=== PATIENT | female | born 1940 | race Two or more races ===

== ENCOUNTER 2021-06-13 18:57 | Emergency (ER) | payer MEDICARE, MEDICAID ==
[~2021-06-13] VITALS: Ht 152.4 cm; Wt 54.5 kg
--- NOTE | 2021-06-13 19:13 | PHYS DOC ---
General Adult HPI: HPI: 40-year-old female past medical history of dementia, hypertension, diabetes, anxiety/underlying psych on depakote and history of frequent falls (on no AV), presents to the ED brought in by EMS after patient unwitnessed fall from standing, bystanders report no loss of consciousness. Patient with history of frequent falls with prior old bruising over her chin. Patient is Guamanian- speaking, not responding to commands in Guamanian, does not state her name. When asks he she's in pain, points to her full diaper. Keeps talking about "bogdan." Hx and ROS limited due to dementia. Review of Systems: Review of Systems: ROS: Unobtainable due to dementia and inappropriate responses Heart Score: C/O Chest Pain: N/A Risk Factors: Risk Factors: DM, Current or recent (<one month) smoker, HTN, HLP, family history of CAD, obesity. Risk Scores: Score 0 - 3: 2.5% MACE over next 6 weeks - Discharge Home Score 4 - 6: 20.3% MACE over next 6 weeks - Admit for Clinical Observation Score 7 - 10: 72.7% MACE over next 6 weeks - Early Invasive Strategies Physical Exam: PE: Constitutional: Well developed, well nourished, no acute distress, non-toxic appearance. HENT: two areas of ecchymosis under each side of her chin (both each 3x3cm), dry mucous membranes Eyes: EOMI, conjunctiva normal, no discharge. Neck: Normal range of motion, supple, no middle steps offs Cardiovascular: S1/2 present, regular rhythm Lungs & Thorax: Speaking in full sentences, bilateral equal chest rise, no tachypnea or increased work of breathing Abdomen: soft, no tenderness, Skin: Warm, dry, no erythema, no rash. [] Back: No midline step-offs or reproducible tenderness, no CVA tenderness. [] Extremities: Moving all 4 extremities, no lower extremity edema Neurologic: Alert, normal motor function, no focal deficits noted. [] Psychologic: Affect normal, judgement normal, mood normal. [] EKG: EKG: Session 65 bpm, no axis deviation, normal intervals, no T wave inversions, ST elevations or ST depressions Radiology/Procedures: Radiology/Procedures: IMAGING REPORT Signed PATIENT: JSUTIN KELLY ACCOUNT: [id number] : 1940 LOCATION: ER AGE: 80 SEX: F EXAM STATUS: REG ER ORD. PHYSICIAN: ANYA MARTINEZ DO REASON: fall from standing, PT UNCOOPERATIVE PROCEDURE: CT HEAD AND CERVICAL SPINE WO EXAMINATION: CT MAXILLOFACIAL WITHOUT CONTRAST, CT HEAD AND C-SPINE WO CLINICAL HISTORY: Fall from standing TECHNIQUE: Serial axial images without IV contrast were obtained from the vertex to the foramen magnum. Spiral high resolution axial unenhanced images were obtained through the facial bones with sagittal and coronal planar reconstructions. CT of the cervical spine without IV contrast. Spiral, high resolution axial images were obtained from the skull base to the cervicothoracic junction with sagittal and coronal planar reconstructions. CT Dose Reduction Employed: One or more of the following individualized dose reduction techniques were utilized for this examination: 1. Automated exposure control 2. Adjustment of the mA and/or kV according to patient size 3. Use of iterative reconstruction technique. COMPARISON: None FINDINGS: BRAIN: Acute Change: No evidence of an acute contusion or other acute parenchymal process. Hemorrhage: No evidence of acute intracranial hemorrhage. Mass Lesion/Mass Effect: No evidence of intracranial mass or extraaxial fluid collection. No significant mass effect. Chronic Change: Patchy hypoattenuation in the supratentorial white matter, nonspecific but likely represents mild to moderate microvascular ischemia. Atherosclerotic calcification of the bilateral carotid siphons. Parenchyma: Moderate generalized volume loss. Ventricles: Ventricular enlargement concordant with degree of parenchymal volume loss. Skull Base: No evidence of acute calvarial fracture. MAXILLOFACIAL: Soft Tissues: No significant superficial soft tissue swelling. Facial Bones: No definitive evidence of acute facial bone fracture. Depressed nasal bone fracture, likely remote given lack of associated soft tissue swelling and suspected corticated fracture margins. Orbits: No evidence of acute orbital fracture. Globes are intact with postoperative changes bilaterally. Soft tissue planes of the orbits maintained. Paranasal Sinuses: No significant sinus disease. Other: Dental caries bilateral maxillary molars. Excess cerumen in bilateral external auditory canals, greater on the left. C-SPINE: Alignment: Straightening to slight reversal of the normal cervical lordosis, possibly positional. Osseous Structures: No evidence of acute fracture or spondylolisthesis. Incomplete osseous fusion of C2 and C3. Degenerative Changes: Multilevel degenerative disc disease, greatest at C6-7. Predominantly mild multilevel neural foraminal narrowing, greatest at C3-4 on the left. No evidence of high-grade osseous spinal stenosis. Cervical Soft Tissues: No prevertebral soft tissue swelling. Vascular calcifications. IMPRESSION: BRAIN: No evidence of acute intracranial abnormality. Chronic white matter microvascular ischemic changes. MAXILLOFACIAL: No evidence of acute facial bone fracture. Probable remote depressed nasal bone fracture as described. C-SPINE: No evidence of acute osseous abnormality involving the cervical spine. Nonacute and multilevel degenerative findings as described. Electronically signed by: Leander Burris DO (06/13/2021 8:42 PM) [facility] DICTATED and SIGNED BY: LEANDER BURRIS DO DATE: 06/13/[id number] 0 IMAGING REPORT Signed PATIENT: JUSTIN KELLY ACCOUNT: [id number] : 1940 LOCATION: ER AGE: 80 SEX: F EXAM STATUS: PRE ER ORD. PHYSICIAN: ANYA MARTINEZ DO REASON: fall from standing PROCEDURE: CHEST AP ONLY Exam: Chest one view INDICATION: Fall from standing TECHNIQUE: Frontal view of the chest Comparisons: None FINDINGS: The cardiomediastinal silhouette and pulmonary vessels are within normal limits. The lung and pleural spaces are clear. IMPRESSION: No acute cardiopulmonary process. Electronically signed by: Ronnie Gastelum MD (06/13/2021 8:02 PM) [facility] DICTATED and SIGNED BY: RONNIE GASTELUM MD DATE: 06/13/[id number] 0 IMAGING REPORT Signed PATIENT: JUSTIN KELLY ACCOUNT: [id number] : 1940 LOCATION: ER AGE: 80 SEX: F EXAM STATUS: PRE ER ORD. PHYSICIAN: ANYA MARTINEZ DO REASON: fall from standing PROCEDURE: PELVIS Exam: Pelvis 1 view INDICATION: Fall from standing TECHNIQUE: Frontal view of the pelvis Comparisons: None FINDINGS: Diffuse osteopenia. Subtle overlap at the femoral head neck junction on the right. Joint spaces are well-maintained. Soft tissues are unremarkable. IMPRESSION: Subtle overlap of the femoral head neck junction on the right which is nonspecific could be related to rotation versus minimally displaced fracture. CT is recommended for further evaluation Electronically signed by: Ronnie Gastelum MD (06/13/2021 8:01 PM) [facility] DICTATED and SIGNED BY: RONNIE GASTELUM MD DATE: 06/13/[id number] 0 IMAGING REPORT Signed PATIENT: JUSTIN KELLY ACCOUNT: [id number] : 1940 LOCATION: ER AGE: 80 SEX: F EXAM STATUS: REG ER ORD. PHYSICIAN: ANYA MARTINEZ DO REASON: FALL, ABNORMAL XRAY, right fem fx? PROCEDURE: CT PELVIS WO CONTRAST Study: CT pelvis without contrast INDICATION: Fall. Abnormal x-ray. COMPARISON: Same day pelvis radiographs. TECHNIQUE: Axial CT imaging of the pelvis performed without the use of intravenous contrast. Coronal and sagittal reformats were obtained. One or more of the following individualized dose reduction techniques were utilized for this examination: 1. Automated exposure control 2. Adjustment of the mA and/or kV according to patient size 3. Use of iterative reconstruction technique. FINDINGS: Limited study for the detection of nondisplaced fractures on account of osteopenia. No definitive fracture at the right femoral head/neck junction as questioned on the same day radiographs. No displaced obturator ring or sacral fracture. No large soft tissue hematoma or joint effusion to help suggest an occult fracture. Degenerative changes at the lower lumbar spine without evidence for severe central canal or neural foraminal stenosis at L4-L5 or L5-S1. Degenerative changes at the hips are mild. Gas density at the fundal aspect of the uterus presumably within the endometrial canal. Uncomplicated fat-containing diastases at the umbilicus and a fat- containing paraumbilical hernia. IMPRESSION: 1. No acute fracture is identified at the right hip or elsewhere however nondisplaced fractures would be difficult to detect given osteopenia. No large soft tissue hematoma to help suggest occult osseous injury. If there is further concern such as inability to bear weight MRI would be the most sensitive modality. 2. Gas density at the fundal uterus presumably within the endometrial canal. There are no findings that would suggest this relates to a fistula but correlate for any abnormal vaginal discharge. Electronically signed by: STAR BERGER MD (06/13/2021 10:26 PM) [facility] DICTATED and SIGNED BY: STAR BERGER MD DATE: 06/13/21 [id number] 0 IMAGING REPORT Signed PATIENT: JUSTIN KELLY ACCOUNT: [id number] : 1940 LOCATION: ER AGE: 80 SEX: F EXAM STATUS: REG ER ORD. PHYSICIAN: ANYA MARTINEZ DO REASON: FALL, ABNORMAL XRAY, right fem fx? PROCEDURE: CT PELVIS WO CONTRAST Study: CT pelvis without contrast INDICATION: Fall. Abnormal x-ray. COMPARISON: Same day pelvis radiographs. TECHNIQUE: Axial CT imaging of the pelvis performed without the use of intravenous contrast. Coronal and sagittal reformats were obtained. One or more of the following individualized dose reduction techniques were utilized for this examination: 1. Automated exposure control 2. Adjustment of the mA and/or kV according to patient size 3. Use of iterative reconstruction technique. FINDINGS: Limited study for the detection of nondisplaced fractures on account of osteopenia. No definitive fracture at the right femoral head/neck junction as questioned on the same day radiographs. No displaced obturator ring or sacral fracture. No large soft tissue hematoma or joint effusion to help suggest an occult fracture. Degenerative changes at the lower lumbar spine without evidence for severe central canal or neural foraminal stenosis at L4-L5 or L5-S1. Degenerative changes at the hips are mild. Gas density at the fundal aspect of the uterus presumably within the endometrial canal. Uncomplicated fat-containing diastases at the umbilicus and a fat- containing paraumbilical hernia. IMPRESSION: 1. No acute fracture is identified at the right hip or elsewhere however nondisplaced fractures would be difficult to detect given osteopenia. No large soft tissue hematoma to help suggest occult osseous injury. If there is further concern such as inability to bear weight MRI would be the most sensitive modality. 2. Gas density at the fundal uterus presumably within the endometrial canal. There are no findings that would suggest this relates to a fistula but correlate for any abnormal vaginal discharge. Electronically signed by: STAR BERGER MD (06/13/2021 10:26 PM) [facility] DICTATED and SIGNED BY: STAR BERGER MD DATE: 06/13/21 [id number] 0 Course & Med Decision Making: Course & Med Decision Making Pertinent Labs and Imaging studies reviewed. (See chart for details) Concern for mechanical fall and patient with known frequent falls w/UTI and prior facial contusions. Patient was observed in the ED for prolonged period of time (she's happy/clapping her hands with the tv), and nontoxic appearing. Incidental finding on CT of gas over uterine fundus, cannot appreciate any vaginal discharge from external vaginal exam and palpation. Pt afebrile, with no tachycardia and uncontrolled hypertension. Will discharge home with strict ED return precautions were given for head injury, confusion, altered mental status or neurologic deficits. Encouraged urgent outpatient follow-up with PMD for reevaluation and routine care. Life-threatening processes were considered but are low suspicion at this time, given history, physical exam and ED workup. Pt was educated on all prescription medications and adverse effects. All patient's questions were answered and pt was stable at time of discharge. Life/limb-threatening differential includes but is not limited to, intracranial hemorrhage, diffuse axonal injury, spinal cord syndrome, unstable cervical fracture or SCIWORA, fractures or joint dislocations, neurovascular injuries, organ injury or laceration, pneumothorax, pneumoperitoneum, pericardial tamponade, unstable pelvic fracture, compartment syndrome, flail chest or respiratory distress, burn injury or asphyxiation I have spoken with the patient and/or caregivers. I explained the patient's condition, diagnoses and treatment plan based on the information available to me at this time. I have answered the patient and/or caregiver's questions and addressed any concerns. The patient and/or caregivers have a good understanding of patient's diagnosis, condition and treatment plan as can be expected at this point. Vital signs have been stable. Patient's condition is stable and appropriate for discharge from the emergency department. Patient will pursue further outpatient evaluation with primary care physician or other designated or consulting physician as outlined in the discharge instructions. The patient and/or caregivers are agreeable to this plan of care and follow-up instructions have been explained in detail. The patient and/or caregivers have received these instructions in written form and have expressed an understanding of the discharge instructions. The patient and/or caregivers are aware that any significant change of condition or worsening of symptoms should prompt immediate return to this or the closest emergency department or call to 911. Solis Disclaimer: Solis Disclaimer: This electronic medical record was generated, in whole or in part, using a voice recognition dictation system. Departure Departure Impression: Primary Impression: Blunt head injury Additional Impressions: Facial contusion UTI (urinary tract infection) Disposition: HOME / SELF CARE / HOMELESS Condition: STABLE Referrals: LONNY NUÑEZ MD Follow-up with your primary care physician in 24 to 48 hours OR FOLLOW UP WITH FAMILY MEDICINE: [address] [place] [address] Patient Instructions: Contusion, Fall Prevention and Home Safety, Urinary Tract Infection Additional Instructions: EMERGENCY DEPARTMENT GENERAL DISCHARGE INSTRUCTIONS Thank you for coming to [facility] Emergency Department (ED) tod ay and trusting us with you care. We trust that you had a positive experience in our Emergency Department. If you wish to speak to the department management, you may call the Director at [phone]. YOUR FOLLOW UP INSTRUCTIONS ARE FOLLOWS: 1. Do you have a private Doctor? If you do not have a private doctor, please ask for a resource list of physicians or clinics that may be able to assist you with follow up care. 2. The Emergency Physicain has interpreted your x-rays. The X-Ray specialist will also review them. If there is a change in the findings, you will be notified in 48 hours when at all possible. 3. A lab test or culture has been done, your results will be reviewed and you will be notified if you need a change in treatment. ADDITIONAL INSTRUCTIONS AND INFORMATION: 1. Your care today has been supervised by a physician who is specially trained in emergency care. Many problems require more than one evaluation for a complete diagnosis and treatment. We recommend that you schedule your follow up appointment as recommended to ensure complete treatment of you illness or injury. If you are unable to obtain follow up care and continue to have a problem, or if your condition worsens, we recommend that you return to the ED. 2. We are not able to safely determine your condition over the phone nor are we able to give sound medical advice over the phone. For these safety reasons, if you call for medical advice we will ask you to come to the ED for further evaluation. 3. If you have any questions regarding these discharge instructions please call the ED at [phone]. SAFETY INFORMATION: In the interest of safety, wellness, and injury prevention; we encourage you to wear your sealbelt, if you smoke; quite smoking, and we encourage family to use a protective helmet for bicycling and other sporting events that present an increased risk for head injury. IF YOUR SYMPTOMS WORSEN OR NEW SYMPTOMS DEVELOP, OR YOU HAVE CONCERNS ABOUT YOUR CONDITION; OR IF YOUR CONDITION WORSENS WHILE YOU ARE WAITING FOR YOUR FOLLOW UP APPOINTMENT; EITHER CONTACT YOUR PRIMARY CARE DOCTOR, THE PHYSICIAN WHOSE NAME AND NUMBER YOU WERE GIVEN, OR RETURN TO THE ED IMMEDIATELY. Scripts Cephalexin (KEFLEX) 500 Mg Capsule 1 CAP PO BID for 7 Days, #14 CAP Prov: ANYA MARTINEZ DO 06/13/21 ANYA MARTINEZ DO Jun 13, 2021 19:13
[2021-06-13 19:18] LABS: BILIRUBIN,URINE NEGATIVE (NEG); CLARITY,URINE CLEAR; COLOR,URINE YELLOW; NITRITE,URINE POSITIVE (NEG); PROTEIN,URINE NEGATIVE (NEG-TRACE); UROBILINOGEN,URINE 0.2 mg/dL (0.2 mg/dL)
[2021-06-13 19:25] LABS: BACTERIA,URINE MANY /HPF (0-FEW); RBC,URINE 0 /HPF (0-2)
--- NOTE | 2021-06-13 20:04 | RAD ---
Exam: Chest one view INDICATION: Fall from standing TECHNIQUE: Frontal view of the chest Comparisons: None FINDINGS: The cardiomediastinal silhouette and pulmonary vessels are within normal limits. The lung and pleural spaces are clear. IMPRESSION: No acute cardiopulmonary process. Electronically signed by: Ronnie Vanessa MD (06/13/2021 8:02 PM) [facility]
--- NOTE | 2021-06-13 20:04 | RAD ---
Exam: Pelvis 1 view INDICATION: Fall from standing TECHNIQUE: Frontal view of the pelvis Comparisons: None FINDINGS: Diffuse osteopenia. Subtle overlap at the femoral head neck junction on the right. Joint spaces are w ell-maintained. Soft tissues are unremarkable. IMPRESSION: Subtle overlap of the femoral head neck junction on the right which is nonspecific could be related t o rotation versus minimally displaced fracture. CT is recommended for further evaluation Electronically signed by: Ronnie Vanessa MD (06/13/2021 8:01 PM) [facility]
--- NOTE | 2021-06-13 20:44 | RAD ---
EXAMINATION: CT MAXILLOFACIAL WITHOUT CONTRAST, CT HEAD AND C-SPINE WO CLINICAL HISTORY: Fall from standing TECHNIQUE: Serial axial images without IV contrast were obtained from the vertex to the foramen magnum. Spiral high resolution axial unenhanced images were obtained through the facial bones with sagittal a nd coronal planar reconstructions. CT of the cervical spine without IV contrast. Spiral, high resolution axial images were obtained from the skull base to the cervicothoracic junction with sagittal and coronal planar reconstructions. CT Dose Reduction Employed: One or more of the following individualized dose reduction techniques wer e utilized for this examination: 1. Automated exposure control 2. Adjustment of the mA and/or kV ac cording to patient size 3. Use of iterative reconstruction technique. COMPARISON: None FINDINGS: BRAIN: Acute Change: No evidence of an acute contusion or other acute parenchymal process. Hemorrhage: No evidence of acute intracranial hemorrhage. Mass Lesion/Mass Effect: No evidence of intracranial mass or extraaxial fluid collection. No signific ant mass effect. Chronic Change: Patchy hypoattenuation in the supratentorial white matter, nonspecific but likely rep resents mild to moderate microvascular ischemia. Atherosclerotic calcification of the bilateral carot id siphons. Parenchyma: Moderate generalized volume loss. Ventricles: Ventricular enlargement concordant with degree of parenchymal volume loss. Skull Base: No evidence of acute calvarial fracture. MAXILLOFACIAL: Soft Tissues: No significant superficial soft tissue swelling. Facial Bones: No definitive evidence of acute facial bone fracture. Depressed nasal bone fracture, li pari remote given lack of associated soft tissue swelling and suspected corticated fracture margins. Orbits: No evidence of acute orbital fracture. Globes are intact with postoperative changes bilateral ly. Soft tissue planes of the orbits maintained. Paranasal Sinuses: No significant sinus disease. Other: Dental caries bilateral maxillary molars. Excess cerumen in bilateral external auditory canals , greater on the left. C-SPINE: Alignment: Straightening to slight reversal of the normal cervical lordosis, possibly positional. Osseous Structures: No evidence of acute fracture or spondylolisthesis. Incomplete osseous fusion of C2 and C3. Degenerative Changes: Multilevel degenerative disc disease, greatest at C6-7. Predominantly mild mult ilevel neural foraminal narrowing, greatest at C3-4 on the left. No evidence of high-grade osseous sp inal stenosis. Cervical Soft Tissues: No prevertebral soft tissue swelling. Vascular calcifications. IMPRESSION: BRAIN: No evidence of acute intracranial abnormality. Chronic white matter microvascular ischemic changes. MAXILLOFACIAL: No evidence of acute facial bone fracture. Probable remote depressed nasal bone fracture as described. C-SPINE: No evidence of acute osseous abnormality involving the cervical spine. Nonacute and multilevel degenerative findings as described. Electronically signed by: Leander Lowe DO (06/13/2021 8:42 PM) [facility]
--- NOTE | 2021-06-13 20:55 | EKG ---
[facility] [address] [place] [address] Test Date: 2021-06-13 Test Time: 19:23:27 Pat Name: JUSTIN KELLY Department: Room: Gender: F Entry Level Marketing Assistant: : 1940 Requested By: ANYA MARTINEZ Order Number: [id number] Reading MD: Jensen An MD Measurements Intervals [place] Rate: 65 P: 37 WA: 196 QRS: 4 QRSD: 80 T: 73 QT: 416 QTc: 433 Interpretive Statements SINUS RHYTHM Electronically Signed On 06-15-2021 9:10:58 CDT by Jensen An MD
--- NOTE | 2021-06-13 22:28 | RAD ---
Study: CT pelvis without contrast INDICATION: Fall. Abnormal x-ray. COMPARISON: Same day pelvis radiographs. TECHNIQUE: Axial CT imaging of the pelvis performed without the use of intravenous contrast. Coronal and sagittal reformats were obtained. One or more of the following individualized dose reduction techniques were utilized for this examinat ion: 1. Automated exposure control 2. Adjustment of the mA and/or kV according to patient size 3. Use of iterative reconstruction technique. FINDINGS: Limited study for the detection of nondisplaced fractures on account of osteopenia. No definitive fra cture at the right femoral head/neck junction as questioned on the same day radiographs. No displaced obturator ring or sacral fracture. No large soft tissue hematoma or joint effusion to help suggest a n occult fracture. Degenerative changes at the lower lumbar spine without evidence for severe central canal or neural fo raminal stenosis at L4-L5 or L5-S1. Degenerative changes at the hips are mild. Gas density at the fundal aspect of the uterus presumably within the endometrial canal. Uncomplicated fat-containing diastases at the umbilicus and a fat-containing paraumbilical hernia. IMPRESSION: 1. No acute fracture is identified at the right hip or elsewhere however nondisplaced fractures woul d be difficult to detect given osteopenia. No large soft tissue hematoma to help suggest occult osseo us injury. If there is further concern such as inability to bear weight MRI would be the most sensiti ve modality. 2. Gas density at the fundal uterus presumably within the endometrial canal. There are no findings t hat would suggest this relates to a fistula but correlate for any abnormal vaginal discharge. Electronically signed by: STAR BERGER MD (06/13/2021 10:26 PM) [facility]
[2021-06-13] MEDS ORDERED: CEPH500C PO (22:59)
[2021-06-14 01:38] VITALS: BP 178/81
== END 2021-06-14 02:45 | disposition home or self-care (01) ==
LOC: ER 18:57
DX: S00.83XA Contusion of other part of head, initial encounter (principal); N39.0 Urinary tract infection, site not specified; F03.90 Unspecified dementia, unspecified severity, without behavioral disturbance, psychotic disturbance, mood disturbance, and anxiety; I10 Essential (primary) hypertension; E11.9 Type 2 diabetes mellitus without complications; F41.9 Anxiety disorder, unspecified; W18.39XA Other fall on same level, initial encounter; Y93.89 Activity, other specified; Y92.89 Other specified places as the place of occurrence of the external cause; Y99.8 Other external cause status
CPT/HCPCS: 51701; 70450; 70486; 71045; 72125; 72170; 72192; 81001; 82962; 87086; 93005; 99285-25